=== PATIENT | male | born 1990 | race African-American/Black ===

== ENCOUNTER 2017-11-28 02:09 | Emergency (ER) | payer OTHER ==
[2017-11-28 05:18] VITALS: BP 112/78; PULSE 82; TEMP 98.1; BMI 20.9
--- NOTE | 2017-11-28 05:27 | PDOC ---
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 The patient describes his headache as ddull. He states that when he woke up he noticed some redness in his ee associated with his headache. The patient denies any pain or vision change. He denies any dizziness, weakness. He denies any other symptoms. He denies any ever, chills, nausea, vomit, diarrhea, constipation or urinary symptoms. The patient denies any chest pain or shortness of breath. The patient denies any other complaints. <Kamlesh Phillips - Last Filed: 11/28/17 05:51> <Marjorie Riley - Last Filed: 11/28/17 06:04> - General Chief Complaint: Eye Problem Stated Complaint: REDNESS EYES,HEADACHE Time Seen by Provider: 11/28/17 05:22 Past History <Kamlesh Phillips - Last Filed: 11/28/17 05:51> - Suicide/Smoking/Psychosocial Hx Smoking History: Never smoked Have you smoked in the past 12 months: No Information on smoking cessation initiated: No Hx Alcohol Use: No Drug/Substance Use Hx: No <Marjorie Riley - Last Filed: 11/28/17 06:04> - Past Medical History Allergies/Adverse Reactions: Allergies Allergy/AdvReac Type Severity Reaction Status Date / Time No Known Allergies Allergy Verified 11/28/17 05:43 Home Medications: Ambulatory Orders Olopatadine HCl [Patanol] 1 ml OP BID #1 bottle 11/28/17 Pantoprazole Sodium 40 mg PO DAILY 11/28/17 Warfarin Na [Coumadin] 7.5 mg PO DAILY 11/28/17 Review of Systems - Review of Systems Able to Perform ROS?: Yes Comments:: 11/28/17 05:52 CONSTITUTIONAL: Absent: fever, chills, diaphoresis, generalized weakness, malaise, loss of appetite HEENT: Absent: rhinorrhea, nasal congestion, throat pain, throat swelling, difficulty swallowing, mouth swelling, ear pain, eye pain, visual Changes CARDIOVASCULAR: Absent: chest pain, syncope, palpitations, irregular heart rate, lightheadedness , peripheral edema RESPIRATORY: Absent: cough, shortness of breath, dyspnea with exertion, orthopnea, wheezing, stridor, hemoptysis GASTROINTESTINAL: Absent: abdominal pain, abdominal distension, nausea, vomiting, diarrhea, constipation, melena, hematochezia GENITOURINARY: Absent: dysuria, frequency, urgency, hesitancy, hematuria, flank pain, genital pain MUSCULOSKELETAL: Absent: myalgia, arthralgia, joint swelling SKIN: Absent: rash, itching, pallor HEMATOLOGIC/IMMUNOLOGIC: Absent: easy bleeding, easy bruising, lymphadenopathy, frequent infections ENDOCRINE: Absent: unexplained weight gain, unexplained weight loss, heat intolerance, cold intolerance NEUROLOGIC:(+)headache Absent: focal weakness or paresthesias, dizziness, unsteady gait, seizure, mental status changes, bladder or bowel incontinence PSYCHIATRIC: Absent: anxiety, depression, suicidal or homicidal ideation, hallucinations. <Kamlesh Phillips - Last Filed: 11/28/17 05:51> *Physical Exam - Vital Signs Last Vital Signs Temp Pulse Resp BP Pulse Ox 98.1 F 82 18 112/78 98 11/28/17 02:30 11/28/17 02:30 11/28/17 02:30 11/28/17 02:30 11/28/17 02:30 - Physical Exam Comments: 11/28/17 05:53 GENERAL: Well developed, well nourished. Awake and alert. No acute distress. HEENT:(+)irritation and erythema to sclera, vision 20/20(right) and 20/25(left) Normocephalic, atraumatic. PERRLA, EOMI. No conjunctival pallor. Sclera are non- icteric. No fluorescein update.Moist mucous membranes. Oropharynx is clear. NECK: Supple. Full ROM. No JVD. Carotid pulses 2+ and symmetric, without bruits. No thyromegaly. No lymphadenopathy. CARDIOVASCULAR: Regular rate and rhythm. No murmurs, rubs, or gallops. Distal pulses are 2+ and symmetric. PULMONARY: No evidence of respiratory distress. Lungs clear to auscultation bilaterally. No wheezing, rales or rhonchi. ABDOMINAL: Soft. Non-tender. Non-distended. No rebound or guarding. No organomegaly. Normoactive bowel sounds. MUSCULOSKELETAL Normal range of motion at all joints. No bony deformities or tenderness. No CVA tenderness. EXTREMITIES: No cyanosis. No clubbing. No edema. No calf tenderness. SKIN: Warm and dry. Normal capillary refill. No rashes. No jaundice. NEUROLOGICAL: Alert, awake, appropriate. Cranial nerves 2-12 intact. No deficits to light touch and temperature in face, upper extremities and lower extremities. No motor deficits in the in face, upper extremities and lower extremities. Normoreflexic in the upper and lower extremities. Normal speech. Toes are down- going bilaterally. Gait is normal without ataxia. PSYCHIATRIC: Cooperative. Good eye contact. Appropriate mood and affect. <Kamlesh Phillips - Last Filed: 11/28/17 05:51> - Vital Signs Last Vital Signs Temp Pulse Resp BP Pulse Ox 98.1 F 82 18 112/78 98 11/28/17 02:30 11/28/17 02:30 11/28/17 02:30 11/28/17 02:30 11/28/17 02:30 <Marjorie Riley - Last Filed: 11/28/17 06:04> ED Treatment Course - Medications Given in the ED: ED Medications Discontinued Medications Generic Name Dose Route Start Last Admin Trade Name Freq PRN Reason Stop Dose Admin Fluorescein Sodium 1 ea 11/28/17 05:37 11/28/17 05:39 Fluorets - OU 11/28/17 05:38 1 ea ONCE ONE Administration <Kamlesh Phillips - Last Filed: 11/28/17 05:51> Medical Decision Making - Medical Decision Making 11/28/17 06:00 patient currently has no headache. reports that headache disappeared after eating and sleeping. 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 <Marjorie Riley - Last Filed: 11/28/17 06:04> *DC/Admit/Observation/Transfer - Attestations Scribe Attestion: 11/28/17 05:55 Documentation prepared by Kamlesh Phillips, acting as medical scientific officer for Alex Keane MD. <Kamlesh Phillips - Last Filed: 11/28/17 05:51> <Marjorie Riley - Last Filed: 11/28/17 06:04> Diagnosis at time of Disposition: Conjunctival irritation Allergic conjunctivitis Qualifiers: Laterality: bilateral Qualified Code(s): H10.13 - Acute atopic conjunctivitis, bilateral - Discharge Dispostion Disposition: HOME Condition at time of disposition: Fair - Prescriptions Prescriptions: Olopatadine HCl [Patanol] 1 ml OP BID #1 bottle - Referrals Referrals: Jalen Cornelius MD [Non Staff, Medical] - - Patient Instructions Printed Discharge Instructions: The Eyes Have It: Conjunctivitis Additional Instructions: do not rub your eyes. follow up with your eye doctor as soon as possible. - Post Discharge Activity Forms/Work/School Notes: Back to Work
[2017-11-28] MEDS ORDERED: FLUORESCEIN NA 1 EA STRIP OU ONE (05:37)
[2017-11-28] MEDS ORDERED: FLUORESCEIN NA 1 EA STRIP ONE (05:38)
--- NOTE | 2017-11-28 05:59 | PDOC ---
*Physical Exam - Vital Signs Last Vital Signs Temp Pulse Resp BP Pulse Ox 98.1 F 82 18 112/78 98 11/28/17 02:30 11/28/17 02:30 11/28/17 02:30 11/28/17 02:30 11/28/17 02:30 ED Treatment Course - Medications Given in the ED: ED Medications Discontinued Medications Generic Name Dose Route Start Last Admin Trade Name Freq PRN Reason Stop Dose Admin Fluorescein Sodium 1 ea 11/28/17 05:37 11/28/17 05:39 Fluorets - OU 11/28/17 05:38 1 ea ONCE ONE Administration Medical Decision Making - Medical Decision Making 11/28/17 05:59 agree with care from BRENNEN Riley *DC/Admit/Observation/Transfer Diagnosis at time of Disposition: Conjunctival irritation, Allergic conjunctivitis - Discharge Dispostion Disposition: HOME Condition at time of disposition: Fair - Prescriptions Prescriptions: Olopatadine HCl [Patanol] 1 ml OP BID #1 bottle - Referrals Referrals: Jalen Cornelius MD [Non Staff, Medical] - - Patient Instructions Printed Discharge Instructions: The Eyes Have It: Conjunctivitis Additional Instructions: do not rub your eyes. follow up with your eye doctor as soon as possible. - Post Discharge Activity Forms/Work/School Notes: Back to Work
== END 2017-11-28 06:26 | disposition home or self-care (01) ==
LOC: JER 02:09
DX: H10.13 Acute atopic conjunctivitis, bilateral (principal); R51 Headache; Z86.718 Personal history of other venous thrombosis and embolism; Z79.01 Long term (current) use of anticoagulants
CPT/HCPCS: 99281-25